=== PATIENT | female | born 1980 | race Caucasian/White ===

== ENCOUNTER → 2018-08-05 | Outpatient (REF) | payer OTHER | LOC: M SFHCLERA 10:06 | PROVIDERS: ATTEND Nurse Practitioner Family | DX: R53.81 Other malaise (principal) ==

== ENCOUNTER → 2023-04-24 | Outpatient (REF) | payer OTHER | LOC: M LAB REF 16:36 | PROVIDERS: ATTEND Physician Assistant | DX: J02.9 Acute pharyngitis, unspecified (principal) ==